=== PATIENT | female | born 1960 | race African-American/Black ===

== ENCOUNTER 2019-03-28 16:02 | Emergency (ER) | payer OTHER ==
[~2019-03-28] VITALS: Ht 167.6 cm; Wt 95.3 kg
--- NOTE | 2019-03-28 16:10 | NUR ---
PT BIB EMS C/O BILATERAL LEG PAIN, DENIES ANY INJURY, PT IS AAOX4, NOT IN RESPIRATORY DISTRESS ,HOOKED TO MONITOR, KEPT RESTED AND COMFORTABLE, WILL CONTINUE TO MONITOR.
--- NOTE | 2019-03-28 16:18 | NUR ---
SEEN AND EXAMINED BY .
--- NOTE | 2019-03-28 16:35 | NUR ---
IV LINE ESTABLISHED, BLOOD DRAWN AND SENT TO LAB.
[2019-03-28 16:38] LABS: BASOPHILS # (AUTO) 0.1 /CMM (0.0-0.2); EOSINOPHILS % (AUTO) 4.1 % (0.0-6.0); HEMATOCRIT 40 % (33-45); LYMPHOCYTES # (AUTO) 2.9 /CMM (0.8-4.8); MEAN CORPUSCULAR HGB CONC 33 g/dl (31.0-36.0); MEAN CORPUSCULAR VOLUME 80 fL (82-100); MONOCYTES # (AUTO) 0.7 /CMM (0.1-1.30); MONOCYTES % (AUTO) 8.3 % (2.0-12.0); NEUTROPHILS # (AUTO) 4.7 /CMM (1.8-8.9); NEUTROPHILS % (AUTO) 53.6 % (43.0-81.0); PLATELET COUNT (AUTO) 247 /CMM (150-450); RED BLOOD CELL COUNT(AUTO) 4.93 MIL/uL (4.0-5.2); WHITE BLOOD COUNT (AUTO) 8.7 K/uL (4.3-11.0)
--- NOTE | 2019-03-28 16:38 | NUR ---
URINAL GIVEN BUT UNABLE TO PROVIDE URINE SPECIMEN THIS TIME.
--- NOTE | 2019-03-28 16:38 | NUR ---
FANCY PACKER AT BEDSIDE FOR XRAY.
--- NOTE | 2019-03-28 16:43 | NUR ---
CALLED US FOR DVT R/O LEFT A MESSAGE. WILL TRY AGAIN SHORTLY
[2019-03-28 16:47] LABS: CALCIUM, SERUM 8.7 mg/dL (8.5-10.1); CARBON DIOXIDE 26 mmol/L (21-32); CHLORIDE 109 mmol/L (98-107); CREATININE 1.2 mg/dL (0.6-1.3); GLUCOSE 101 mg/dL (74-106); POTASSIUM 3.8 mmol/L (3.5-5.1); SODIUM SERUM 145 mmol/L (136-145); UREA NITROGEN, BLOOD 18 mg/dL (7-18)
--- NOTE | 2019-03-28 16:50 | NUR ---
HAD US PAGED OVERHEAD.AWAITING CALL BACK
--- NOTE | 2019-03-28 17:01 | NUR ---
TECH AT BEDSIDE FOR US.
--- NOTE | 2019-03-28 17:59 | NUR ---
CALLED FOR DINNER PLATE
--- NOTE | 2019-03-28 18:11 | NUR ---
FOOD TRAY PROVIDED.
--- NOTE | 2019-03-28 18:12 | NUR ---
ETA FOR [facility] TRIP#[id number]
--- NOTE | 2019-03-28 19:12 | NUR ---
REPORT GIVEN TO MARIA INES BRADY FOR [facility].
--- NOTE | 2019-03-28 19:25 | NUR ---
PT WAS YELLING THAT SHE HAD TO GO TO THE BATHROOM. PT WAS ASSISTED TO A AND TAKEN TO THE BATHROOM. PT WAS ABLE TO USE THE GRAB BARS TO SIT ON THE TOILET.
--- NOTE | 2019-03-28 19:30 | NUR ---
PT WAS ASSISTED TO THE WC AND TAKEN BACK TO ER 4.
--- NOTE | 2019-03-28 20:10 | NUR ---
PT APPEARS TO BE RESTING COMFORTABLY AND IS PLAYING WITH HER iPAD.
--- NOTE | 2019-03-28 20:33 | NUR ---
CALLING [facility] RE: TRANSPORT. ETA 30 MINS MORE.
--- NOTE | 2019-03-28 21:08 | NUR ---
CALLING [facility] RE: TRANSPORT NOT HERE TO TRANSPORT PT TO HER FACILITY.
--- NOTE | 2019-03-28 21:08 | NUR ---
CALLED [facility]: PER [facility], DISPATCH, TRANSPORT SHOULD ARRIVE SOON.
--- NOTE | 2019-03-28 21:36 | NUR ---
[facility] ARRIVED AND REPORT WAS GIVEN TO THE EMT. FACE SHEET GIVEN TO EMT. PT REQUESTED A PB AND J SANDWICH. SANDWICH WAS OBTAINED FROM [facility] OFFICE. Patient discharged to home in stable condition. Written and verbal after care instructions given. Patient verbalizes understanding of instruction. PT'S VSS. PT TRANSPORTED VIA GURNEY.
[2019-03-28 21:38] VITALS: BP 158/82
== END 2019-03-28 21:39 | disposition home or self-care (01) ==
LOC: ER 16:08
DX: R60.0 Localized edema (principal); I10 Essential (primary) hypertension; Z86.73 Personal history of transient ischemic attack (TIA), and cerebral infarction without residual deficits; Z91.018 Allergy to other foods; Z88.8 Allergy status to other drugs, medicaments and biological substances
CPT/HCPCS: 36415; 71045-TC; 80048-TC; 84484-TC; 85025-TC; 85730-TC; 93971-TC